=== PATIENT | female | born 1995 | race Hispanic/Latino ===

== ENCOUNTER 2017-12-31 23:38 | Emergency (ER) | payer MEDICAID ==
[2017-12-31 23:44] VITALS: RESP 16
[2018-01-01] MEDS ORDERED: Sodium Chloride 0.9% 1,000 ML IV STA (00:02)
[2018-01-01 01:02] LABS: BASO % 0.4 % (0.0-2.0); EOS # 0.1 K/uL (0.0-0.7); EOS % 1.1 % (0.0-4.0); HEMOGLOBIN 10.5 g/dL (12.0-16.0); LYMPH # 2.8 K/uL (1.0-4.3); LYMPH % 26.7 % (20.0-40.0); MEAN CELL VOLUME 89.4 fl (81.0-99.0); MEAN CORPUSCULAR HEMOGLOBIN 31.5 pg (27.0-31.0); MEAN CORPUSCULAR HGB CONC 35.3 g/dL (33.0-37.0); MEAN PLATELET VOLUME 7.2 fl (7.2-11.7); MONO # 0.6 K/uL (0.0-0.8); MONO % 5.5 % (0.0-10.0); NEUT # 6.9 K/uL (1.8-7.0); NEUT % 66.3 % (50.0-75.0); RBC 3.32 Mil/uL (3.80-5.20); RED CELL DISTRIBUTION WIDTH 12.6 % (11.5-14.5); WHITE BLOOD COUNT 10.4 K/uL (4.8-10.8)
[2018-01-01 01:09] LABS: ALB/GLOB RATIO 1.2 (1.0-2.1); ALBUMIN 3.6 g/dL (3.5-5.0); ALT/SGPT 41 U/L (9-52); AST/SGOT 25 U/L (14-36); BLOOD UREA NITROGEN 5 mg/dl (7-17); CALCIUM 8.7 mg/dL (8.4-10.2); GFR NON-AFRICAN AMERICAN > 60
--- NOTE | 2018-01-01 01:18 | ED PDOC ---
HPI: Abdomen Time Seen by Provider: 01/01/18 00:01 Chief Complaint (Nursing): Abdominal Pain Chief Complaint (Provider): abdominal pain History Per: Patient History/Exam Limitations: no limitations Onset/Duration Of Symptoms: Days (x1) Current Symptoms Are (Timing): Still Present Pain Scale Rating Of: 6 Associated Symptoms: denies: Fever, Chills, Nausea, Vomiting, Diarrhea, Urinary Symptoms Additional Complaint(s): Aditi Yan is a 22 year old female, with no significant past medical history, who presents to the emergency department complaining of abdominal pain onset for x1 day. Patient is A0, EGA x6 weeks. Patient was diagnosed with ectopic x1 week ago in right fallopian tube. She had work up done at [facility] and since she has been given Methotrexate injection and follow up with IMPROVEMENT ANALYST. Patient saw IMPROVEMENT ANALYST on Thursday and Thursday, she also had follow up beta HCGs but is unaware of results. Patient believes original Beta was in the 3000s range. She reports she has been bleeding and having abdominal cramps since Methotrexate injection but cramps worsen today. Patient ranks pain a 6/10 and she has been taking Tylenol. Pain is mostly on right side and denies any nausea, vomit, diarrhea, urinary symptoms, fever, chills or other medical complaints. PMD: Nolan Hermos[place] Past Medical History Reviewed: Historical Data, Nursing Documentation, Vital Signs Vital Signs: Last Vital Signs Temp 98.2 F 12/31/17 23:42 Pulse 78 12/31/17 23:42 Resp 16 12/31/17 23:42 BP 126/88 12/31/17 23:42 Pulse Ox 99 12/31/17 23:42 - Medical History PMH: No Chronic Diseases - Surgical History Surgical History: No Surg Hx - Family History Family History: States: Unknown Family Hx - Social History Current smoker - smoking cessation education provided: No Alcohol: None Drugs: Denies - Allergies Allergies/Adverse Reactions: Allergies Allergy/AdvReac Type Severity Reaction Status Date / Time No Known Allergies Allergy Verified 12/31/17 23:41 Review of Systems ROS Statement: Except As Marked, All Systems Reviewed And Found Negative Constitutional: Negative for: Fever, Chills Gastrointestinal: Positive for: Abdominal Pain (right side). Negative for: Nausea, Vomiting, Diarrhea Genitourinary Female: Negative for: Dysuria, Frequency, Vaginal Discharge, Vaginal Bleeding Physical Exam - Reviewed Nursing Documentation Reviewed: Yes Vital Signs Reviewed: Yes - Physical Exam Appears: Positive for: Uncomfortable Head Exam: Positive for: ATRAUMATIC, NORMAL INSPECTION, NORMOCEPHALIC Skin: Positive for: Normal Color, Warm, Dry Eye Exam: Positive for: Normal appearance, EOMI, PERRL Neck: Positive for: Painless ROM Cardiovascular/Chest: Positive for: Regular Rate, Rhythm. Negative for: Murmur Respiratory: Positive for: Normal Breath Sounds. Negative for: Respiratory Distress Gastrointestinal/Abdominal: Positive for: Tenderness (diffused) Back: Positive for: Normal Inspection. Negative for: Vertebral Tenderness Extremity: Positive for: Normal ROM (upper and lower extremities). Negative for: Deformity, Swelling Neurologic/Psych: Positive for: Alert, Oriented, Gait (steady) - Laboratory Results Result Diagrams: 01/01/18 00:50 01/01/18 00:50 - ECG O2 Sat by Pulse Oximetry: 99 (RA) Pulse Ox Interpretation: Normal Medical Decision Making Medical Decision Making: Time: 00:01 Initial Impression: 22 y/o female with abdominal pain in setting of recent chemotherapeutic treatment for ectopic . Initial Plan: --Beta-HCG Quantitative --CMP --Urine --Urine dipstick --CBC w/ differential --Sodium Chloride 1,000 ml IV 1,000 mls/hr --Urinalysis --OB Transvaginal [US] --Reevaluation -Patient is denying pain mediations. 02:53 Transvaginal US Findings: Uterus measures 7.2x5.6 x 3.9 cm. Retroverted uterus. No intrauterine is seen. Endometrium is normal in thickness measuring 6.8 mm. Normal cervix measuring 3.7 cm in length. Small amount of free fluid is noted in the pelvic cul-de-sac. Right ovary measures 3.2x2.5x2.1 cm. There is a complex heterogeneous nonvascular structure of the right adnexa superior to the right ovary measuring 6.5 cm. Patient had history of ectopic one week ago and the right fallopian tube. She was given methotrexate intramuscular injection. The left ovary measures the 3.1 times a 2.1x2.1 cm. There is a cystic structure adjacent to the left ovary measuring 2.7 cm. Impression: Bilateral adnexal lesions as above. Complex on the right and simple on the left. No evidence of ovarian torsion. 03:10 -Spoke with Dr. Castellon, given Beta has come down patient is safe for discharge and follow up for other serial Betas as an outpatient. Patient advised to continue to take Tylenol or Ibuprofen as needed for abdominal pain. Diagnosis of ectopic . ----- Scribe Attestation: Documented by Nura Alcantar, acting as a scribe for Cody Steele MD. Provider Scribe Attestation: All medical record entries made by the Scribe were at my direction and personally dictated by me. I have reviewed the chart and agree that the record accurately reflects my personal performance of the history, physical exam, medical decision making, and the department course for this patient. I have also personally directed, reviewed, and agree with the discharge instructions and disposition. Disposition - Clinical Impression Clinical Impression: Ectopic - Disposition Disposition: Routine/Home Disposition Time: 03:10 Condition: STABLE Instructions: Ectopic Forms: [employer] (Macanese)
[2018-01-01 03:07] LABS: SQUAMOUS EPITHIAL 1 /hpf (0-5); URINE BILIRUBIN NEGATIVE (NEGATIVE); URINE BLOOD LARGE (NEGATIVE); URINE CLARITY CLEAR (Clear); URINE COLOR YELLOW (YELLOW); URINE GLUCOSE (UA) NEG (Normal); URINE LEUKOCYTE ESTERASE NEG Leu/uL (Negative); URINE PROTEIN NEGATIVE (NEGATIVE); URINE UROBILINOGEN 0.2-1.0 mg/dL (0.2-1.0)
[2018-01-01 03:34] VITALS: BP 109/73; PULSE 84; TEMP 98.1; O2SAT 100
--- NOTE | 2018-01-01 12:26 | US ---
Date of service: 01/01/2018 PROCEDURE: OB Pelvic Ultrasound HISTORY: right ectopic preg vag bld LMP: COMPARISON: None available. FINDINGS: UTERUS: Uterus measures 7.2 x 5.6 x 4.0 cm. No uterine mass. Uterus retroverted. The endometrium measures 7 mm in width. There is no intrauterine gestational sac identified CERVIX: Measures . There is no endometrial fluid. 3.7 cm. Long and closed. No cervical abnormality seen. RIGHT OVARY: Measures 3.2 x 2.5 x 2.0 cm. No mass lesion. Normal flow. Superior to the right ovary but separate from it there is a nonvascular soft tissue mass measuring 6.5 x 4.7 x 3.1 cm. Uncertain significance. This could represent a nonviable ectopic gestation, status post methotrexate administration 1 week ago. Comparison to prior examination is advised. LEFT OVARY: Measures 3.2 x 3.1 x 2.1 cm. No solid mass. Normal flow. Simple para ovarian cyst 2.3 x 2.7 x 2.4 cm. FREE FLUID: There is free fluid noted in the pelvis with some internal echoes which may reflect post infectious/postinflammatory debris or blood. OTHER FINDINGS: None. IMPRESSION: Nonvascular soft tissue structure 6.5 cm greatest dimension superior to right ovary. Possible nonviable ectopic gestation, status post methotrexate injection. Complex fluid in cul-de-sac, nonspecific. The complexity of this fluid raises some concern for hemoperitoneum.. 2.7 cm left para ovarian cyst. No evidence of ovarian torsion. The preliminary findings for this examination were reported by [facility] Radiology at 2:53 a.m. on 01/01/2018. There is discordant of this report with the preliminary findings. The possibility of hemoperitoneum was not described in the preliminary report of this examination. The findings in this report and discrepancy with the preliminary report were discussed by telephone with DULCE Arrington at 12:20 p.m. on 01/01/2018
== END 2018-01-01 03:32 | disposition home or self-care (01) ==
LOC: H.ER 23:38
DX: O00.90 Unspecified ectopic pregnancy without intrauterine pregnancy (principal)
CPT/HCPCS: 76817; 80053; 81003; 84702; 85025; 99283; J7030

== ENCOUNTER 2018-01-01 13:51 | Emergency (ER) | payer MEDICAID ==
[2018-01-01 14:30] LABS: BASO % 0.7 % (0.0-2.0); EOS % 1.6 % (0.0-4.0); HEMOGLOBIN 10.2 g/dL (12.0-16.0); LYMPH % 35.2 % (20.0-40.0); MEAN CELL VOLUME 89.7 fl (81.0-99.0); MEAN CORPUSCULAR HEMOGLOBIN 31.1 pg (27.0-31.0); MEAN CORPUSCULAR HGB CONC 34.6 g/dL (33.0-37.0); MONO % 6.9 % (0.0-10.0); NEUT # 3.3 K/uL (1.8-7.0); NEUT % 55.6 % (50.0-75.0); NRBC % 0.1 % (0.0-0.0); RBC 3.27 Mil/uL (3.80-5.20)
[2018-01-01 14:31] LABS: EOS # 0.1 K/uL (0.0-0.7); LYMPH # 2.1 K/uL (1.0-4.3); MONO # 0.4 K/uL (0.0-0.8)
[2018-01-01 14:56] LABS: BLOOD UREA NITROGEN 3 mg/dl (7-17); CALCIUM 8.5 mg/dL (8.4-10.2); GFR NON-AFRICAN AMERICAN > 60
--- NOTE | 2018-01-01 15:03 | ED PDOC ---
HPI: Abdomen Time Seen by Provider: 01/01/18 14:02 Chief Complaint (Nursing): Abnormal Labs Chief Complaint (Provider): Abdominal pain History Per: Patient History/Exam Limitations: no limitations Onset/Duration Of Symptoms: Days (x1) Additional Complaint(s): Patient is a 22 y/o female, with no significant medical history, who presents to the ED complaining of abdominal pain, onset earlier today. Patient was seen overnight in ER for abdominal pain with previous diagnosis of ectopic x1 week ago at [facility]; she was given a Rx for methotrexate and followed up with her OB, Dr. Yee. OB stated her hormone levels were dropping appropriately, but yesterday patient developed cramping and bilateral lower abdominal pain. US initially didn't note any concern for hemoperitoneum but on second read patient was recalled for reevaluation. Today, patient states pain is similar to her pain overnight. She denies any dizziness, syncope, or current vaginal bleeding. This is her first and she denies any prior surgeries. Past Medical History Reviewed: Historical Data, Nursing Documentation, Vital Signs Vital Signs: Last Vital Signs Temp 98.2 F 01/01/18 13:59 Pulse 84 01/01/18 13:59 Resp 18 01/01/18 13:59 BP 124/85 01/01/18 13:59 Pulse Ox 100 01/01/18 13:59 - Medical History PMH: No Chronic Diseases - Surgical History Surgical History: No Surg Hx - Family History Family History: States: Unknown Family Hx - Allergies Allergies/Adverse Reactions: Allergies Allergy/AdvReac Type Severity Reaction Status Date / Time No Known Allergies Allergy Verified 01/01/18 13:59 Review of Systems ROS Statement: Except As Marked, All Systems Reviewed And Found Negative Gastrointestinal: Positive for: Abdominal Pain Genitourinary Female: Positive for: Pelvic Pain. Negative for: Vaginal Bleeding Neurological: Negative for: Dizziness Physical Exam - Reviewed Nursing Documentation Reviewed: Yes Vital Signs Reviewed: Yes - Physical Exam Appears: Positive for: Well Head Exam: Positive for: ATRAUMATIC, NORMOCEPHALIC Skin: Positive for: Normal Color, Warm, Dry Eye Exam: Positive for: EOMI, Normal appearance, PERRL Neck: Positive for: Normal, Painless ROM Cardiovascular/Chest: Positive for: Regular Rate, Rhythm. Negative for: Murmur Respiratory: Positive for: Normal Breath Sounds. Negative for: Respiratory Distress Gastrointestinal/Abdominal: Positive for: Soft, Tenderness (mild bilateral lower abdominal tenderness). Negative for: Guarding Back: Positive for: Normal Inspection. Negative for: L CVA Tenderness, R CVA Tenderness, Vertebral Tenderness Extremity: Positive for: Normal ROM. Negative for: Pedal Edema, Deformity Neurologic/Psych: Positive for: Alert, Oriented. Negative for: Motor/Sensory Deficits - Laboratory Results Result Diagrams: 01/01/18 14:25 01/01/18 14:25 - ECG O2 Sat by Pulse Oximetry: 100 (RA) Pulse Ox Interpretation: Normal Medical Decision Making Medical Decision Making: Time: 14:03 Impression: Abdominal pain Initial Plan: Repeat hemoglobin, repeat quant, and discuss wit OB. BMP Beta-HCG CBC w/ diff Accession No. : [id number] Patient Name / ID : MARK BROWN / [id number] Exam Date : 01/01/2018 17:18:20 ( Approved ) Study Comment : Sex / Age : F / 22Y Creator : Jose Angel Avery MD Dictator : Jose Angel Avery MD Melangeur Operator : Research Electrician : Jose Angel Avery MD Approver2 : Report Date : 01/01/2018 18:38:23 My Comment : * Date of service: 01/01/2018 HISTORY: ectopic re-eval for hemoperitoneum COMPARISON: 01/01/2018 at 1:30 a.m. TECHNIQUE: Transvaginal and transabdominal FINDINGS: UTERUS: Measures 6.5 x 4.1 x 4.5 cm. No uterine mass. The uterus is retroverted. ENDOMETRIUM: Measures 8 mm in diameter. No intrauterine gestation CERVIX: No cervical abnormality identified. RIGHT OVARY: Measures 3.0 x 2.1 x 2.3 cm. No solid mass. Normal flow. Superior to the right ovary there is a soft tissue mass with peripheral hypervascularity measuring 4.8 x 2.5 x 5.3 cm. This is suspicious for an ectopic in a patient with reported known ectopic gestation on outside examination. Prior outside examination is not available for comparison. The peripheral hypervascularity is characteristic for ectopic gestation LEFT OVARY: Measures 2.9 x 1.8 x 3.1 cm. No solid mass. Normal flow. FREE FLUID: There free fluid seen in the cul-de-sac. There are low-level echoes seen in some of the peritoneal fluid suggesting possible blood products versus postinflammatory/postinfectious debris. Majority of the fluid demonstrated in the pelvis is anechoic. OTHER FINDINGS: None. IMPRESSION: Suspected right adnexal ectopic with characteristic sonographic appearance. There is questionable evidence of hemoperitoneum with some echoes seen in portions of the pelvic fluid. Not significantly changed from prior ultrasound examination -------- call placed to OB Dr Yee [phone], case discussed 1914 he recommends in house OB eval for laproscopy given size of ectopic and potential MTX treatment f ailure. Endorse Dr Thao pending OB consult, Dr Ramirez currently in CSection. Scribe Attestation: Documented by Abdullahi Diaz, acting as a scribe for Kale Sal MD. Provider Scribe Attestation: All medical record entries made by the Scribe were at my direction and personally dictated by me. I have reviewed the chart and agree that the record accurately reflects my personal performance of the history, physical exam, medical decision making, and the department course for this patient. I have also personally directed, reviewed, and agree with the discharge Disposition - Clinical Impression Clinical Impression: Ectopic - Patient ED Disposition Is Patient to be Admitted: Transfer of Care - Disposition Disposition: Transfer of Care Disposition Time: 19:20 Condition: FAIR Forms: [employer] (Afghan)
--- NOTE | 2018-01-01 18:42 | US ---
Date of service: 01/01/2018 HISTORY: ectopic re-eval for hemoperitoneum COMPARISON: 01/01/2018 at 1:30 a.m. TECHNIQUE: Transvaginal and transabdominal FINDINGS: UTERUS: Measures 6.5 x 4.1 x 4.5 cm. No uterine mass. The uterus is retroverted. ENDOMETRIUM: Measures 8 mm in diameter. No intrauterine gestation CERVIX: No cervical abnormality identified. RIGHT OVARY: Measures 3.0 x 2.1 x 2.3 cm. No solid mass. Normal flow. Superior to the right ovary there is a soft tissue mass with peripheral hypervascularity measuring 4.8 x 2.5 x 5.3 cm. This is suspicious for an ectopic in a patient with reported known ectopic gestation on outside examination. Prior outside examination is not available for comparison. The peripheral hypervascularity is characteristic for ectopic gestation LEFT OVARY: Measures 2.9 x 1.8 x 3.1 cm. No solid mass. Normal flow. FREE FLUID: There free fluid seen in the cul-de-sac. There are low-level echoes seen in some of the peritoneal fluid suggesting possible blood products versus postinflammatory/postinfectious debris. Majority of the fluid demonstrated in the pelvis is anechoic. OTHER FINDINGS: None. IMPRESSION: Suspected right adnexal ectopic with characteristic sonographic appearance. There is questionable evidence of hemoperitoneum with some echoes seen in portions of the pelvic fluid. Not significantly changed from prior ultrasound examination
[2018-01-01] MEDS ORDERED: Sodium Chloride 0.9% 1,000 ML IV STA (19:24)
--- NOTE | 2018-01-01 20:18 | ED PDOC ---
- Laboratory Results Result Diagrams: 01/01/18 14:25 01/01/18 14:25 - ECG O2 Sat by Pulse Oximetry: 100 (RA) - Progress Re-evaluation Time: 01:00 Condition: Re-examined, Improved Medical Decision Making Medical Decision Makin:00 Patient signed out to this provider from Dr. Sal. Pending evaluation by DIRECTOR METABOLISM. 0000 Patient is evaluated by OB in house in ED. Patient case discussed with Dr Ayaan kwong who recommends discharge with return in 3 days and close follow up. Scribe Attestation: Documented by Arnol Crawford acting as a scribe for Maddy Thao MD. Provider Scribe Attestation: All medical record entries made by the Scribe were at my direction and personally dictated by me. I have reviewed the chart and agree that the record accurately reflects my personal performance of the history, physical exam, medical decision making, and the department course for this patient. I have also personally directed, reviewed, and agree with the discharge instructions and disposition. Disposition Doctor Will See Patient In The: Office Counseled Patient/Family Regarding: Studies Performed, Diagnosis, Need For Followup - Clinical Impression Clinical Impression: Ectopic - POA Present On Arrival: None - Disposition Disposition: Routine/Home Disposition Time: 01:30 Condition: GOOD Additional Instructions: Please return to ER or see your primary care transport nurse in 3 days for repeat HCG and US repeat. Return for worsening immediately. STEPHANIE FLORES, thank you for letting us take care of you today. Your provider was Maddy Thao MD and you were treated for ABNORMAL LABS. The emergency medical care you received today was directed at your acute symptoms. If you were prescribed any medication, please fill it and take as directed. It may take several days for your symptoms to resolve. Return to the Emergency Department if your symptoms worsen, do not improve, or if you have any other problems. Please contact your doctor or call one of the physicians/clinics you have been referred to that are listed on the Patient Visit Information form that is included in your discharge packet. Bring any paperwork you were given at discharge with you along with any medications you are taking to your follow up visit. Our treatment cannot replace ongoing medical care by a primary care provider outside of the emergency department. Thank you for allowing the [facility] team to be part of your care today. If you had an X-Ray or CT scan: A Radiologist will review the ED reading if any change in treatment is needed we will contact you. If you had a blood, urine, or wound culture: It will take several days for the results, if any change in treatment is needed we will contact you. If you had an STI test: It will take 48 hours for the results. Please call after 1 week if you have not heard back. Instructions: Ectopic Forms: [employer] (Ukrainian)
[2018-01-01 21:45] VITALS: RESP 16
[2018-01-02 02:02] VITALS: O2SAT 100
[2018-01-02 02:36] VITALS: BP 117/76; PULSE 67; TEMP 98.4
--- NOTE | 2018-01-02 03:24 | CP.PCM.CON ---
<Nilda Lainez - Last Filed: 01/02/18 03:40> History of Present Illness - History of Present Illness History of Present Illness: 22 year old female as seen bedside for reevaluation of abdominal pain s/p reread of U/S at [facility] ED overnight. Prior ectopic diagnosed 8 days prior to current presentation at [facility] (6 weeks gestation confirmed by LMP 11/13/2017). She was treated with Methotrexate and followed-up for HCG levels with her OBGYN, Dr. Yee. Multiple attempts were made to obtain records but [facility] only sent initial bHCG level (3846 on Dec 24) and Dr. Yee was not able to be reached. She states that she had heavy bleeding for the first two days after Methotrexate but it began to taper and is currently not bleeding. Patient feels like the pain is more of a pressure and due to gas. It is epigastric and radiates laterally. Moving makes it worse and warm compress/heating pad makes it better. Maximum pain is 3/10. RLQ pain present but only on deep palpation. Denies dizziness, nausea, vomiting, blurry vision, chills, fever, chest pain, shortness of breath, constipation, diarrhea and urinary symptoms. PCP: Nolan Liu ([place]), OBGYN Dr. Yee [phone] PMH: denies PFHx: denies PSHx: denies Social: denies Allergies: denies Meds: denies OBGYN Hx: regular periods, every 28 days lasting 5 days; - s/p methotrexate 8 days prior to presentation for ectopic at 6.0 weeks. U/S: 01/01/2018 at 1:30 a.m. RIGHT OVARY: Measures 3.0 x 2.1 x 2.3 cm. No solid mass. Normal flow. Superior to the right ovary there is a soft tissue mass with peripheral hypervascularity measuring 4.8 x 2.5 x 5.3 cm. This is suspicious for an ectopic in a patient with reported known ectopic gestation on outside examination. Prior outside examination is not available for comparison. The peripheral hypervascularity is characteristic for ectopic gestation FREE FLUID: There free fluid seen in the cul-de-sac. There are low-level echoes seen in some of the peritoneal fluid suggesting possible blood products versus postinfla mmatory/postinfectious debris. Majority of the fluid demonstrated in the pelvis is anechoic. IMPRESSION: Suspected right adnexal ectopic with characteristic sonographic appearance. There is questionable evidence of hemoperitoneum with some echoes seen in portions of the pelvic fluid. Not significantly changed from prior ultrasound examination Review of Systems - Constitutional Constitutional: absent: Chills, Fatigue, Fever, Headache, Malaise - EENT Eyes: absent: Change in Vision - Cardiovascular Cardiovascular: absent: Chest Pain - Respiratory Respiratory: absent: Cough, Dyspnea - Gastrointestinal Gastrointestinal: absent: Constipation, Diarrhea, Nausea, Vomiting - Genitourinary Genitourinary: absent: Dysuria - Menstruation Menstruation: absent: Abnormal Vaginal Bleeding Past Patient History - Past Social History Smoking Status: Never Smoked - PSYCHIATRIC Hx Substance Use: No - SURGICAL HISTORY Hx Surgeries: No - ANESTHESIA Hx Anesthesia: No Meds Allergies/Adverse Reactions: Allergies Allergy/AdvReac Type Severity Reaction Status Date / Time No Known Allergies Allergy Verified 01/01/18 13:59 Physical Exam - Constitutional Appears: Non-toxic, No Acute Distress - Head Exam Head Exam: ATRAUMATIC - Eye Exam Eye Exam: Normal appearance - ENT Exam ENT Exam: Mucous Membranes Moist - Respiratory Exam Respiratory Exam: NORMAL BREATHING PATTERN - GI/Abdominal Exam GI & Abdominal Exam: Tenderness (epigastric to mild palpation, RLQ to deep palpation) - Skin Skin Exam: Normal Color Results - Vital Signs Recent Vital Signs: Last Vital Signs Temp 98.4 F 01/02/18 02:35 Pulse 67 01/02/18 02:35 Resp 16 01/02/18 02:35 BP 117/76 01/02/18 02:35 Pulse Ox 100 01/02/18 02:35 - Labs Result Diagrams: 01/01/18 14:25 01/01/18 14:25 Labs: Laboratory Results - last 24 hr 01/01/18 01/01/18 01/01/18 14:25 14:25 14:25 WBC 6.0 RBC 3.27 L Hgb 10.2 L Hct 29.3 L MCV 89.7 MCH 31.1 H MCHC 34.6 RDW 13.0 Plt Count 248 MPV 7.0 L Neut % (Auto) 55.6 Lymph % (Auto) 35.2 Blanco % (Auto) 6.9 Eos % (Auto) 1.6 Baso % (Auto) 0.7 Neut # (Auto) 3.3 Lymph # (Auto) 2.1 Blanco # (Auto) 0.4 Eos # (Auto) 0.1 Baso # (Auto) 0.0 Sodium 140 Potassium 3.8 Chloride 110 H Carbon Dioxide 24 Anion Gap 10 BUN 3 L Creatinine 0.5 L Est GFR ( Amer) > 60 Est GFR (Non-Af Amer) > 60 Random Glucose 89 Calcium 8.5 Beta HCG, Quant 594.40 Blood Type Blood Type Confirm Antibody Screen BBK History Checked 01/01/18 01/01/18 19:30 20:30 WBC RBC Hgb Hct MCV MCH MCHC RDW Plt Count MPV Neut % (Auto) Lymph % (Auto) Blanco % (Auto) Eos % (Auto) Baso % (Auto) Neut # (Auto) Lymph # (Auto) Blanco # (Auto) Eos # (Auto) Baso # (Auto) Sodium Potassium Chloride Carbon Dioxide Anion Gap BUN Creatinine Est GFR ( Amer) Est GFR (Non-Af Amer) Random Glucose Calcium Beta HCG, Quant Blood Type O POSITIVE Blood Type Confirm O POSITIVE Antibody Screen Negative BBK History Checked No verified bt Assessment & Plan - Assessment and Plan (Free Text) Assessment: 22 year old female was seen bedside for reevaluation of abdominal pain s/p reread of U/S at [facility] ED overnight. Ectopic -Patient is in no acute distress, vitally stable, comfortable -bHCG (as per [facility] 12/24) 3846 -> 594 (current, 01/01) -Hg/Hct 10.2/29.3 -Educated patient and partner on signs and symptoms warranting an emergent ED visit. Both verbally understood potential severity. -Return in 3 days for bHCG and CBC follow-up <Devin Chaney O - Last Filed: 01/03/18 19:18> Results - Vital Signs Recent Vital Signs: Last Vital Signs Temp 98.4 F 01/02/18 02:35 Pulse 67 01/02/18 02:35 Resp 16 01/02/18 02:35 BP 117/76 01/02/18 02:35 Pulse Ox 100 01/02/18 02:35 - Labs Result Diagrams: 01/01/18 14:25 01/01/18 14:25 Addendum Addendum: 01/02/18 o8:04 Attending Note: Patient was seen and discussed with Resident. No prior records were obtained from previous providers to determine management. Plan: 1.Patient to return for a repeat beta hcg and ultrasound to monitor the progress of treatment. 2.Patient education on symptoms suggestive of immediate report to the ER was done. Patient verbalized understanding of the issues discussed. 3.Patient would be followed up by residents( family Practice residents ). 4. Would recommend further evaluation in the event of either plateauing or rising beta hcg levels or if the sonographic parameters of the adnexal mass increases.
== END 2018-01-02 02:36 | disposition home or self-care (01) ==
LOC: H.ER 13:51
DX: O00.90 Unspecified ectopic pregnancy without intrauterine pregnancy (principal)
CPT/HCPCS: 76830; 76856; 80048; 84702; 85025; 86850; 86900; 96360; 99282; J7030

== ENCOUNTER 2018-01-05 11:55 | Emergency (ER) | payer MEDICAID ==
--- NOTE | 2018-01-05 12:46 | ED PDOC ---
HPI: Abdomen Time Seen by Provider: 01/05/18 12:11 Chief Complaint (Nursing): Abnormal Labs Chief Complaint (Provider): Abnormal Labs History Per: Patient History/Exam Limitations: no limitations Onset/Duration Of Symptoms: Persistent (x2 weeks) Current Symptoms Are (Timing): Still Present Additional Complaint(s): 22 year old female, , arrives to ED for repeat labs following an ectopic diagnosed 2 weeks ago. Patient was initially evaluated by Dr. Yee in [facility] office for pelvic pain and prescribed Methotrexate in second visit. She was then seen in ED on 12/31/17, in which, an U/S and labs indicated a right- sided ectopic with BETA count at 584. Patient was advised to return the next day as a discrepancy in the U/S revealed hemoperitoneum with BETA count at 594. Patient returns again today as recommended by on-call [facility] TRA[facility] CO[facility], Dr. Chaney, during last visit. At present, patient reports improvement with pelvic pain and vaginal bleeding after Methotrexate use. She denies any fever, chills, vomiting, dysuria, or prior hx of ectopic . Of note, she has not follow up with Dr. Yee since last BETA count from 01/01/18. PMD: Dr. Nolan Hermosillo [facility] TRA[facility] CO[facility]: Dr. Bubba Yanez Past Medical History Reviewed: Historical Data, Nursing Documentation, Vital Signs Vital Signs: Last Vital Signs Temp 98.6 F 01/05/18 12:05 Pulse 85 01/05/18 12:05 Resp 17 01/05/18 12:05 BP 113/68 01/05/18 12:05 Pulse Ox 100 01/05/18 12:05 - Medical History PMH: No Chronic Diseases - Surgical History Surgical History: No Surg Hx - Family History Family History: States: Unknown Family Hx - Allergies Allergies/Adverse Reactions: Allergies Allergy/AdvReac Type Severity Reaction Status Date / Time No Known Allergies Allergy Verified 01/01/18 13:59 Review of Systems ROS Statement: Except As Marked, All Systems Reviewed And Found Negative Constitutional: Negative for: Fever, Chills Gastrointestinal: Negative for: Vomiting Genitourinary Female: Positive for: Vaginal Bleeding (improved), Pelvic Pain (i mproved on right side). Negative for: Dysuria Physical Exam - Reviewed Nursing Documentation Reviewed: Yes Vital Signs Reviewed: Yes - Physical Exam Appears: Positive for: Non-toxic, No Acute Distress Skin: Positive for: Normal Color, Warm. Negative for: Rash Cardiovascular/Chest: Positive for: Regular Rate, Rhythm Respiratory: Positive for: Normal Breath Sounds. Negative for: Respiratory Distress Gastrointestinal/Abdominal: Positive for: Normal Exam, Soft. Negative for: Tenderness, Other (pelvic tenderness) Neurologic/Psych: Positive for: Alert (x3), Oriented. Negative for: Motor/Sensory Deficits - Laboratory Results Result Diagrams: 01/05/18 12:54 - ECG O2 Sat by Pulse Oximetry: 100 (RA) Pulse Ox Interpretation: Normal Medical Decision Making Medical Decision Making: Time: 123 Initial Plan: * Type and screen * BETA-HCG * CBC Time: 1236 --Discussed case with [facility] TRA[facility]/[employer] CO[facility], Dr. Bustamante, whom does not recommend another U/S but to repeat BETA and CBC to track decreasing hormones. Time: 1330 --BETA-HC.16 1419 Results d/w Dr. Bustamante who states pt. can f/u with her OBGYN in 1 week for repeat BHCG. Pt. informed of results. Agrees with care. Reports no pain at this time. Scribe Attestation: Documented by Kathy Garces, acting as a scribe for Richar Thrasher PA-C. Provider Scribe Attestation: All medical record entries made by the Scribe were at my direction and personally dictated by me. I have reviewed the chart and agree that the record accurately reflects my personal performance of the history, physical exam, medical decision making, and the department course for this patient. I have also personally directed, reviewed, and agree with the discharge instructions and disposition. Disposition - Clinical Impression Clinical Impression: Ectopic - Patient ED Disposition Is Patient to be Admitted: No - Disposition [facility] Disposition: Routine/Home Disposition Time: 14:18 Condition: STABLE Additional Instructions: STEPHANIE FLORES, thank you for letting us take care of you today. Your provider was Maynor Miguel MD and you were treated for REPEAT BLOODWORK. The emergency medical care you received today was directed at your acute symptoms. If you were prescribed any medication, please fill it and take as directed. It may take several days for your symptoms to resolve. Return to the Emergency Department if your symptoms worsen, do not improve, or if you have any other problems. Please contact your doctor or call one of the physicians/clinics you have been referred to that are listed on the Patient Visit Information form that is included in your discharge packet. Bring any paperwork you were given at discharge with you along with any medications you are taking to your follow up visit. Our treatment cannot replace ongoing medical care by a primary care provider outside of the emergency department. Thank you for allowing the [facility] team to be part of your care today. If you had an X-Ray or CT scan: A Radiologist will review the ED reading if any change in treatment is needed we will contact you. If you had a blood, urine, or wound culture: It will take several days for the results, if any change in treatment is needed we will contact you. If you had an STI test: It will take 48 hours for the results. Please call after 1 week if you have not heard back. Instructions: Ectopic (DC) Forms: [employer] (Urdu)
[2018-01-05 13:12] LABS: BASO # 0.1 K/uL (0.0-0.2); BASO % 0.7 % (0.0-2.0); EOS # 0.1 K/uL (0.0-0.7); EOS % 0.7 % (0.0-4.0); HEMOGLOBIN 12.1 g/dL (12.0-16.0); LYMPH # 1.9 K/uL (1.0-4.3); LYMPH % 20.8 % (20.0-40.0); MEAN CELL VOLUME 91.5 fl (81.0-99.0); MEAN CORPUSCULAR HEMOGLOBIN 31.2 pg (27.0-31.0); MEAN CORPUSCULAR HGB CONC 34.1 g/dL (33.0-37.0); MEAN PLATELET VOLUME 7.2 fl (7.2-11.7); MONO # 0.5 K/uL (0.0-0.8); MONO % 5.7 % (0.0-10.0); NEUT # 6.5 K/uL (1.8-7.0); NEUT % 72.1 % (50.0-75.0); RBC 3.88 Mil/uL (3.80-5.20); RED CELL DISTRIBUTION WIDTH 12.9 % (11.5-14.5)
[2018-01-05 14:31] VITALS: BP 114/70; PULSE 78; RESP 18; TEMP 98.2; O2SAT 99
== END 2018-01-05 14:30 | disposition home or self-care (01) ==
LOC: H.ER 11:55
DX: O00.90 Unspecified ectopic pregnancy without intrauterine pregnancy (principal)